=== PATIENT | female | born 1995 | race Caucasian/White ===

== ENCOUNTER 2024-09-04 20:12 | Emergency (ER) | payer OTHER ==
[~2024-09-04] VITALS: Ht 162.6 cm; Wt 98.5 kg
[~2024-09-04 20:12] MED LIST: ACETAMINOPHEN325 M1 PO; ATENOLOL25 MG PO; CIPRO500 MG PO; COLACE100 MG PO; ELURYNG VAGINA1 EACH PV; HYDROCODON-ACE1 EA10 PO; IBUPROFEN800 MG PO; IMPLANON68 MG SQ; KEFLEX500 MG PO; LABETALOL HCL100 MG PO; MACROBID 100 M100 MG PO; NORCO 5-325 TA1 EACH PO; NORETHINDRONE0.35 MG PO; OXYCODONE HCL10 MG PO; PRENATA CHEWAB1 EACH PO; PREVACID30 MG PO; PROTONIX40 MG PO; SUCRALFATE1 GM PO; TRAMADOL HCL50 MG PO; ZOFRAN ODT4 MG PO
[2024-09-04 20:18] VITALS: BP 166/100
== END 2024-09-04 20:18 | disposition other institution, planned readmission (95) ==
LOC: ED 20:12
DX: O13.3 Gestational [pregnancy-induced] hypertension without significant proteinuria, third trimester (principal); O99.891 Other specified diseases and conditions complicating pregnancy; R22.42 Localized swelling, mass and lump, left lower limb; Z3A.33 33 weeks gestation of pregnancy; Z88.8 Allergy status to other drugs, medicaments and biological substances; Z79.899 Other long term (current) drug therapy
CPT/HCPCS: 99283